=== PATIENT | male | born 1980 | race Caucasian/White ===

== ENCOUNTER 2018-01-14 05:57 | Day surgery (SDC) | payer OTHER ==
[2018-01-07 19:13] VITALS: BMI 34.7
[2018-01-14] MEDS ORDERED: BUPIVACAINE HCL/PF 0.5% (5MG/ML) 10 ML VIAL ONE ×2 (07:07→08:07)
[2018-01-14] MEDS ORDERED: MIDAZOLAM HCL 2 MG/2 ML SINGLE DOSE VIAL ONE (07:30)
[2018-01-14] MEDS ORDERED: ceFAZolin SODIUM 1 GM VIAL ONE (07:50)
[2018-01-14] MEDS ORDERED: ONDANSETRON 4 MG/2 ML VIAL ONE (07:50)
[2018-01-14] MEDS ORDERED: SUCCINYLCHOLINE CHLORIDE 200 MG/10 ML VIAL ONE (07:50)
[2018-01-14] MEDS ORDERED: PROPOFOL 20 ML ONE ×2 (07:50)
[2018-01-14] MEDS ORDERED: DEXAMETHASONE SOD PHOSPHATE 4 MG/1 ML VIAL ONE (07:50)
--- NOTE | 2018-01-14 07:52 | HP ---
Satellite [facility] - Chief Complaint Chief Complaint: left knee pain - Past Medical History Allergies/Adverse Reactions: Allergies Allergy/AdvReac Type Severity Reaction Status Date / Time No Known Allergies Allergy Verified 01/07/18 19:04 - Current Medications Current Medications: Home Medications Medication Instructions Recorded Esomeprazole Magnesium [Nexium 20 mg PO HS 01/07/18 24Hr] Fexofenadine/Pseudoephedrine 1 tab PO HS 01/07/18 [Annemarie-D 24 Hour Tablet] Grape Seed Extract [Grape Seed] 60 mg PO HS 01/14/18 Guaifenesin [Mucinex] 600 mg PO ASDIR PRN 01/14/18 Oxycodone HCl/Acetaminophen 1 tab PO Q6H #20 tablet MDD 4 01/14/18 [Percocet 5-325 mg Tablet] Satellite Physical Exam - Physical Examination Vital Signs: Vital Signs Period Temp Pulse Resp BP Sys/Chandra Pulse Ox Last 24 Hr 98 F 64 18 123/74 96 General Appearance: Well Nourished, Well Developed, Alert & Oriented x3 ENT: Clear Lung: Normal air movement Heart: Regular rate & rhythm Extremities: Other (left knee- + swelling, + ttp, decr rom, + mcmurrays, nvi MRi + mmt) Neurological: Intact, Alert, Oriented Satellite Impression/Plan - Impression/Plan Impression: left knee internal derangement Operative Procedure: left knee arthroscopy Date to be Performed: 01/14/18
[2018-01-14] MEDS ORDERED: LIDOCAINE 1%/EPI 1:100000 (20 ML MULTI DOSE VIAL) ONE (08:07)
[2018-01-14] MEDS ORDERED: BUPIVACAINE HCL/PF 0.5% (5MG/ML) 10 ML VIAL IJ ONE (08:15)
[2018-01-14] MEDS ORDERED: LIDOCAINE 1%/EPI 1:100000 (50 ML MULTI DOSE VIAL) INF ONE (08:15)
[2018-01-14] MEDS ORDERED: BUPIVACAINE HCL/PF (5 MG/ML) 30 ML VIAL IJ ONE (08:38)
[2018-01-14 09:36] VITALS: TEMP 97.8
[2018-01-14] MEDS ORDERED: ONDANSETRON 4 MG/2 ML VIAL IVPUSH PRN (09:55)
[2018-01-14] MEDS ORDERED: oxyCODONE HCL 5 MG TABLET PO PRN (09:55)
[2018-01-14] MEDS ORDERED: LACTATED RINGERS SOLUTION 1,000 ML IV SCH (10:00)
[2018-01-14 12:09] VITALS: BP 110/58; PULSE 50
--- NOTE | 2018-01-14 12:09 | OP ---
Operative Note - Note: Operative Date: 01/14/18 (fartun) Pre-Operative Diagnosis: left knee internal derangement Operation: left knee arthroscopy with PMM Post-Operative Diagnosis: Same as Pre-op Surgeon: Theodore Rowe Program Paraprofessional: Renato Interiano Anesthesiologist/ELECTROMECHANICAL INSPECTOR: Margi Mcfadden Anesthesia: Spinal, Local Specimens Removed: shavings Estimated Blood Loss (mls): 5 Operative Report Dictated: Yes
--- NOTE | 2018-01-14 13:08 | OP ---
DATE OF OPERATION: 01/14/2018 PREOPERATIVE DIAGNOSIS: Internal derangement, left knee. POSTOPERATIVE DIAGNOSIS: Internal derangement, left knee. PROCEDURE: Left knee arthroscopy, partial medial meniscectomy. SURGICAL ATTENDING: Theodore Watson MD DISTRICT MANAGER: Renato Interiano MD ANESTHESIA: Spinal. CLOSURE: 3-0 nylon. COMPLICATIONS: None. CONDITION: To recovery room in stable condition. DESCRIPTION OF OPERATIVE PROCEDURE: Patient was taken to the operating room on January 14, 2018. General anesthesia with LMA was administered by the anesthesiologist. The left lower extremity was prepped and draped in the usual sterile fashion. The medial and lateral infrapatellar portal sites were infiltrated with 1% Xylocaine with epinephrine. Both portals were then made with a 15 blade followed by a blunt trocar. The scope was placed in the lateral infrapatellar portal and up into the suprapatellar pouch. The knee was inflated with a cocktail of 10 mL of 1% Xylocaine, 10 mL of 0.5% Marcaine, and 20 mL of arthroscopic saline. This was allowed to sit in the knee for a few minutes to allow the anesthetic to work intraarticularly. The scope was placed in the lateral infrapatellar portal and up into the suprapatellar pouch. The pouch was visualized to be clean. The medial and lateral gutters were visualized to be clean. The undersurface of the patella and trochlea were visualized to be intact. With valgus stress on the knee, the medial compartment was entered. The medial meniscus was visualized, probed, and found to have a complex tear of the posterior horn. This was debrided back to smooth stable meniscal tissue using a meniscal biter and arthroscopic shaver. The medial femoral condyle was run and found to be intact as well as the medial tibial plateau. At 90 degrees, the ACL was visualized, probed, and found to be intact. In the figure 4 position, the lateral compartment was entered. The lateral meniscus was visualized, probed, and found to be intact. The lateral femoral condyle was run and found to be intact as was the lateral tibial plateau. The knee was irrigated with copious amounts of irrigation and then the fluid was drained. The inferomedial portal was closed then with 4-0 nylon. Prior to pulling the trocar from the lateral infrapatellar portal, 20 mL of 0.5% Marcaine was infused into the knee for postoperative analgesia. The trocar was then pulled and the incision was closed with 4-0 nylon suture. A sterile pressure dressing was applied. Patient awakened from anesthesia and transferred to recovery in stable condition. No complication. Estimated blood loss negligible. THEODORE WATSON M.D. [id number]
--- NOTE | 2018-01-17 16:30 | PATH ---
Surgical Pathology Report Patient Name: JESSE RODRIGUEZ Med. Rec. #: [id number] /Age/Gender: 1980 (Age: 37) / M Account: [id number] [facility] Taken: 01/14/2018 Received: 01/14/2018 Reported: 01/17/2018 Physicians: Theodore Rowe M.D. Specimen(s) Received LEFT KNEE SHAVINGS Clinical History Left medial meniscus tear Final Diagnosis KNEE, LEFT, ARTHROSCOPIC SHAVINGS: FIBROSYNOVIAL TISSUE AND CARTILAGE. Electronically Signed Olive Baumann M.D. Gross Description Received in formalin labeled "left knee shavings," is a 4.0 x 3.8 x 0.3 cm aggregate of guzman-yellow soft tissue fragments. A sales representative malt liquors portion is submitted in one cassette. 01/15/2018
== END 2018-01-14 12:10 | disposition home or self-care (01) ==
LOC: FASU 05:57
PROVIDERS: ATTEND Orthopaedic Surgery
PROC: 0SBD4ZZ Excision of Left Knee Joint, Percutaneous Endoscopic Approach (ICD-10-PCS; principal; 2018-01-14 08:00)
DX: M23.222 Derangement of posterior horn of medial meniscus due to old tear or injury, left knee (principal)
CPT/HCPCS: 94760